=== PATIENT | female | born 1985 | race Caucasian/White ===

== ENCOUNTER 2016-07-13 18:20 | Emergency (ER) | payer OTHER ==
[~2016-07-13] VITALS: Ht 162.5 cm; Wt 77.1 kg
[~2016-07-13 18:20] MED LIST: ALBUTEROL0.09 MG/A2 IH; ALBUTEROL0.09 MG/A2 INH; AMOXIL500 MG PO; ANAPROX DS550 MG PO; BACTRIM DS 8001 TAB PO; BENADRYL25 MG PO; CIPROFLOXACIN500 MG PO; CORTISPORIN SUS10 ML OT; Claritin-D 10 M1 T24 PO; DEPAKOTE500 MG PO; DIFLUCAN150 MG PO; DOXYCYCLINE MO100 MG PO; Effexor25 MG PO; FLAGYL500 MG PO; FLEXERIL5 MG PO; FLONASE ALLERG9.9 ML NAS; FLONASE0.05 MG/AC NS; KENALOG0.1% TP; MACROBID100 M1 PO; MOTRIN800 MG PO; NAPROSYN500 MG PO; NEURONTIN300 MG PO; PREDNICOT10 MG PO; PREDNISONE10 MG PO; ROBITUSSIN AC 110 ML PO; SEPTRA DS 800 M1 TAB PO; SEROQUEL25 MG PO; SUBOXONE 2 MG-01 TA2 SL; TESSALON PERLE200 MG PO; TRAMADOL HCL50 MG PO; VIBRA-TAB100 MG PO; VIBRAMYCIN100 MG PO; VISTARIL25 MG PO; ZITHROMAX250 MG PO; [UNRECOGNIZED DRUG - REMARK]
[2016-07-13 18:25] VITALS: BP 150/90
[2016-07-13] MEDS ORDERED: NAPROSYN500 MG PO (18:34)
== END 2016-07-13 19:34 | disposition home or self-care (01) ==
LOC: ED 18:20
DX: S62.346A Nondisplaced fracture of base of fifth metacarpal bone, right hand, initial encounter for closed fracture (principal); R03.0 Elevated blood-pressure reading, without diagnosis of hypertension; F17.200 Nicotine dependence, unspecified, uncomplicated; Z79.899 Other long term (current) drug therapy; W51.XXXA Accidental striking against or bumped into by another person, initial encounter; Y93.89 Activity, other specified; Y92.89 Other specified places as the place of occurrence of the external cause; Y99.9 Unspecified external cause status

== ENCOUNTER 2016-07-26 13:59 | Emergency (ER) | payer OTHER ==
[~2016-07-26] VITALS: Ht 162.5 cm; Wt 74.8 kg
[2016-07-26] MEDS ORDERED: LITHIUM CARBON300 MG PO (14:06)
[2016-07-26 14:07] VITALS: BP 139/86
[2016-07-26] MEDS ORDERED: GABAPENTIN600 MG PO (14:07)
[2016-07-26 14:37] LABS: BILIRUBIN NEGATIVE (NEGATIVE); BLOOD 1+ (NEGATIVE); CLARITY SL CLOUDY (CLEAR); COLOR YELLOW (YELLOW); GLUCOSE NEGATIVE (NEGATIVE); KETONE NEGATIVE (NEGATIVE); LEUKO ESTERASE 2+ (NEGATIVE); NITRITE NEGATIVE (NEGATIVE); PH 5.5 (5.0-9.0); PROTEIN NEGATIVE (NEGATIVE)
[2016-07-26 14:54] LABS: BACTERIA 1+; EPITHELIAL CELLS 25-30; URINE REFLEX COMMENT YES (NO); WBC TNTC wbc/hpf (0-5); YEAST TRACE
[2016-07-26] MEDS ORDERED: MONISTAT 745 GM V (15:59)
[2016-07-26] MEDS ORDERED: FLAGYL500 MG PO (15:59)
[2016-07-26] MEDS ORDERED: DIFLUCAN150 MG PO (15:59)
[2016-07-26] MEDS ORDERED: CIPRO500 MG PO (15:59)
== END 2016-07-26 16:56 | disposition home or self-care (01) ==
LOC: ED 13:59
PROVIDERS: Nurse Practitioner Family
DX: N30.01 Acute cystitis with hematuria (principal); N76.0 Acute vaginitis; B37.3 Candidiasis of vulva and vagina; F17.200 Nicotine dependence, unspecified, uncomplicated

== ENCOUNTER → 2016-08-07 | Outpatient (CLI) | payer OTHER ==
[~2016-08-07] MED LIST changes: +CIPRO500 MG PO; +GABAPENTIN600 MG PO; +LITHIUM CARBON300 MG PO; +MONISTAT 745 GM V
== END | disposition home or self-care (01) ==
LOC: ORTHO 03:10
DX: S62.316D Displaced fracture of base of fifth metacarpal bone, right hand, subsequent encounter for fracture with routine healing (principal); X58.XXXD Exposure to other specified factors, subsequent encounter

== ENCOUNTER → 2016-09-04 | Outpatient (CLI) | payer OTHER | END | disposition home or self-care (01) | LOC: ORTHO 00:30 | DX: S62.316D Displaced fracture of base of fifth metacarpal bone, right hand, subsequent encounter for fracture with routine healing (principal); X58.XXXD Exposure to other specified factors, subsequent encounter ==

== ENCOUNTER 2018-03-31 08:34 | Emergency (ER) | payer OTHER ==
[~2018-03-31] VITALS: Ht 162.5 cm; Wt 72.6 kg
[~2018-03-31 08:34] MED LIST changes: +KEFLEX500 M1 PO; +ROBITUSSIN DM 105 ML PO
[2018-03-31 08:36] VITALS: BP 98/45
[2018-03-31] MEDS ORDERED: SUBOXONE 8 MG-1 EACH SL (08:38)
[2018-03-31] MEDS ORDERED: PREDNISONE20 M1 PO (09:57)
[2018-03-31] MEDS ORDERED: FLONASE ALLERG9.9 ML NAS (09:57)
[2018-03-31] MEDS ORDERED: ROBITUSSIN DM 101 OZ PO (09:57)
[2018-03-31 10:23] LABS: BILIRUBIN NEGATIVE (NEGATIVE); BLOOD NEGATIVE (NEGATIVE); CLARITY SL CLOUDY (CLEAR); COLOR YELLOW (YELLOW); GLUCOSE NEGATIVE (NEGATIVE); KETONE NEGATIVE (NEGATIVE); LEUKO ESTERASE NEGATIVE (NEGATIVE); NITRITE NEGATIVE (NEGATIVE); PH 5.5 (5.0-9.0); SPECIFIC GRAVITY >= 1.030 (1.005-1.030); UROBILINOGEN 0.2 E.U./dl (0.2-1.0)
[2018-03-31 10:31] LABS: BACTERIA 1+; CALCIUM OXALATE CRYSTALS 1+; EPITHELIAL CELLS 16-20
[2018-03-31] MEDS ORDERED: CLEOCIN HCL300 MG PO (10:39)
== END 2018-03-31 11:14 | disposition home or self-care (01) ==
LOC: ED 08:34
PROVIDERS: Emergency Medicine
DX: N76.0 Acute vaginitis (principal); B96.89 Other specified bacterial agents as the cause of diseases classified elsewhere; Z11.3 Encounter for screening for infections with a predominantly sexual mode of transmission; Z79.899 Other long term (current) drug therapy

== ENCOUNTER 2018-05-11 16:28 | Emergency (ER) | payer OTHER ==
[~2018-05-11] VITALS: Ht 162.5 cm; Wt 72.6 kg
[~2018-05-11 16:28] MED LIST changes: +CLEOCIN HCL300 MG PO; +PREDNISONE20 M1 PO; +ROBITUSSIN DM 101 OZ PO; +SUBOXONE 8 MG-1 EACH SL
[2018-05-11 16:35] VITALS: BP 128/94
[2018-05-11 17:47] LABS: BILIRUBIN NEGATIVE (NEGATIVE); BLOOD 1+ (NEGATIVE); CLARITY CLEAR (CLEAR); COLOR YELLOW (YELLOW); GLUCOSE NEGATIVE (NEGATIVE); KETONE 1+ (NEGATIVE); LEUKO ESTERASE NEGATIVE (NEGATIVE); NITRITE NEGATIVE (NEGATIVE); UROBILINOGEN 0.2 E.U./dl (0.2-1.0)
[2018-05-11 17:53] LABS: BASO % 0.4 % (0.0-1.0); EOS % 0.1 % (1.0-4.0); HEMATOCRIT 41.5 % (37.0-47.0); HEMOGLOBIN 14.8 g/dl (12.0-16.0); LYMPH # 1.8 10*3/uL (1.3-4.4); LYMPH % 24.8 % (27.0-41.0); MEAN CELL VOLUME 85.4 fl (81.0-99.0); MEAN CORPUSCULAR HGB 30.5 pg (27.0-31.0); MEAN CORPUSCULAR HGB CONC 35.7 g/dl (33.0-37.0); MEAN PLATELET VOLUME 12.2 fl (9.6-12.3); MONO # 0.6 10*3/uL (0.1-1.0); MONO % 8.4 % (3.0-9.0); NEUT # 4.8 10*3/uL (2.3-7.9); NEUT % 66.2 % (47.0-73.0); PLATELET COUNT AUTOMATED 174 10*3/uL (130-400); RED BLOOD COUNT 4.86 10*6/uL (4.10-5.10); WHITE BLOOD COUNT 7.3 10*3/uL (4.8-10.8)
[2018-05-11 17:55] LABS: ALBUMIN 3.9 gm/dl (3.1-4.5); ALKALINE PHOSPHATASE 84 U/L (45-117); BUN 8 mg/dl (7-24); CHLORIDE 106 mmol/L (98-107); CREATININE 0.75 mg/dL (0.55-1.02); POTASSIUM 3.9 mmol/L (3.5-5.1); SGOT/AST 72 IU/L (3-35); SGPT/ALT 79 U/L (12-78); SODIUM 139 mmol/L (136-145); TOTAL PROTEIN 8.5 gm/dL (6.4-8.2)
[2018-05-11 17:56] LABS: B-hCG (QUALITATIVE) NEGATIVE (NEGATIVE)
[2018-05-11 17:57] LABS: BACTERIA 1+
[2018-05-11 18:01] LABS: ACT PARTIAL THROMBO TIME 25.8 SECONDS (20.8-31.5)
== END 2018-05-11 20:20 | disposition home or self-care (01) ==
LOC: ED 16:28
PROVIDERS: Emergency Medicine
DX: S39.012A Strain of muscle, fascia and tendon of lower back, initial encounter (principal); S16.1XXA Strain of muscle, fascia and tendon at neck level, initial encounter; S49.91XA Unspecified injury of right shoulder and upper arm, initial encounter; E04.1 Nontoxic single thyroid nodule; R79.1 Abnormal coagulation profile; F17.200 Nicotine dependence, unspecified, uncomplicated; M25.512 Pain in left shoulder; V43.62XA Car passenger injured in collision with other type car in traffic accident, initial encounter; Y93.89 Activity, other specified; Y92.413 State road as the place of occurrence of the external cause; Y99.8 Other external cause status

== ENCOUNTER 2018-10-09 16:27 | Emergency (ER) | payer OTHER ==
[~2018-10-09] VITALS: Ht 162.5 cm; Wt 68.0 kg
[2018-10-09 16:28] VITALS: BP 122/75
[2018-10-09] MEDS ORDERED: METROGEL-VAGINA70 GM V (17:36)
[2018-10-09 18:01] LABS: BILIRUBIN NEGATIVE (NEGATIVE); BLOOD NEGATIVE (NEGATIVE); CLARITY CLEAR (CLEAR); COLOR YELLOW (YELLOW); GLUCOSE NEGATIVE (NEGATIVE); KETONE NEGATIVE (NEGATIVE); LEUKO ESTERASE NEGATIVE (NEGATIVE); NITRITE NEGATIVE (NEGATIVE); UROBILINOGEN 0.2 E.U./dl (0.2-1.0)
[2018-10-09 18:09] LABS: EPITHELIAL CELLS 3; WBC 0-2 wbc/hpf (0-5)
[2018-10-14 09:50] LABS: GONOCOCCUS BY NAA Negative (Negative)
== END 2018-10-09 18:16 | disposition home or self-care (01) ==
LOC: ED 16:27
PROVIDERS: Nurse Practitioner Family
DX: N76.0 Acute vaginitis (principal); B96.89 Other specified bacterial agents as the cause of diseases classified elsewhere; Z72.51 High risk heterosexual behavior; Z20.2 Contact with and (suspected) exposure to infections with a predominantly sexual mode of transmission; Z79.2 Long term (current) use of antibiotics; Z79.899 Other long term (current) drug therapy

== ENCOUNTER 2018-12-15 13:40 | Emergency (ER) | payer OTHER ==
[~2018-12-15] VITALS: Ht 162.5 cm; Wt 72.6 kg
[~2018-12-15 13:40] MED LIST changes: +METROGEL-VAGINA70 GM V
[2018-12-15 13:41] VITALS: BP 120/85
[2018-12-15] MEDS ORDERED: METROGEL-VAGINA70 GM V (14:22)
[2018-12-15] MEDS ORDERED: CLINDAMYCIN HC300 MG PO (14:33)
== END 2018-12-15 14:26 | disposition home or self-care (01) ==
LOC: ED 13:40
DX: N76.0 Acute vaginitis (principal)

== ENCOUNTER → 2019-02-23 | Outpatient (CLI) | payer OTHER ==
[~2019-02-23] MED LIST changes: +CLINDAMYCIN HC300 MG PO
[2019-02-23 11:16] LABS: ALBUMIN 4.1 gm/dl (3.1-4.5)
[2019-02-23 11:20] LABS: BILIRUBIN, DIRECT 0.2 mg/dL (0.0-0.2); TOTAL PROTEIN 8.7 gm/dL (6.4-8.2)
[2019-02-26 00:10] LABS: HCV LOG10 5.799 (.); HEPATITIS C QNT 630000 IU/mL (.)
== END | disposition home or self-care (01) ==
LOC: LAB 09:46 → US 09:46
PROVIDERS: Internal Medicine Gastroenterology
DX: B18.2 Chronic viral hepatitis C (principal); R94.5 Abnormal results of liver function studies

== ENCOUNTER 2019-03-28 22:00 | Inpatient (IN) | payer OTHER ==
[~2019-03-28] VITALS: Ht 162.6 cm; Wt 69.9 kg
[2019-03-28 22:09] VITALS: BP 143/83
[2019-03-28 23:07] LABS: BASO % 0.4 % (0.0-1.0); EOS # 0.1 10*3/uL (0.0-0.4); EOS % 0.5 % (1.0-4.0); HEMATOCRIT 40.8 % (37.0-47.0); HEMOGLOBIN 13.7 g/dl (12.0-16.0); LYMPH # 2.4 10*3/uL (1.3-4.4); MEAN CELL VOLUME 90.7 fl (81.0-99.0); MEAN CORPUSCULAR HGB 30.4 pg (27.0-31.0); MEAN CORPUSCULAR HGB CONC 33.6 g/dl (33.0-37.0); MEAN PLATELET VOLUME 11.7 fl (9.6-12.3); MONO # 1.1 10*3/uL (0.1-1.0); MONO % 9.5 % (3.0-9.0); NEUT # 7.4 10*3/uL (2.3-7.9); NEUT % 67.2 % (47.0-73.0); PLATELET COUNT AUTOMATED 181 10*3/uL (130-400); RED CELL DISTRI WIDTH 11.9 % (0-14.5)
[2019-03-28 23:26] LABS: ALBUMIN 3.6 gm/dl (3.1-4.5); ALKALINE PHOSPHATASE 80 U/L (45-117); BUN 9 mg/dl (7-24); CHLORIDE 106 mmol/L (98-107); CREATININE 0.81 mg/dL (0.55-1.02); POTASSIUM 3.7 mmol/L (3.5-5.1); SGOT/AST 78 IU/L (3-35); SGPT/ALT 92 U/L (12-78); SODIUM 136 mmol/L (136-145); TOTAL PROTEIN 7.9 gm/dL (6.4-8.2)
[2019-03-28 23:27] LABS: BETA-HCG, QUANT < 1.0 mIU/mL (1-3); TROPONIN I < 0.015 ng/ml (<0.045)
[2019-03-29 00:41] LABS: BILIRUBIN NEGATIVE (NEGATIVE); BLOOD TRACE-INTACT (NEGATIVE); CLARITY CLEAR (CLEAR); COLOR YELLOW (YELLOW); GLUCOSE NEGATIVE (NEGATIVE); KETONE NEGATIVE (NEGATIVE); LEUKO ESTERASE NEGATIVE (NEGATIVE); NITRITE NEGATIVE (NEGATIVE); UROBILINOGEN 0.2 E.U./dl (0.2-1.0)
[2019-03-29 00:50] LABS: RBC 0-2 rbc/hpf (0-2); WBC 0-2 wbc/hpf (0-5)
[2019-03-29 07:35] VITALS: BP 107/62
[2019-03-29 08:00] VITALS: BP 98/69
[2019-03-29] MEDS ORDERED: SEROQUEL100 MG PO (08:27)
[2019-03-29] MEDS ORDERED: RISPERDAL2 M1 PO (08:27)
[2019-03-29] MEDS ORDERED: NEURONTIN100 MG PO (08:27)
[2019-03-29] MEDS ORDERED: PROAIR HFA8.5 GM INH (08:28)
[2019-03-29 12:00] VITALS: BP 102/61
[2019-03-29 16:00] VITALS: BP 97/70
[2019-03-29 20:00] VITALS: BP 108/59
[2019-03-30] VITALS (7 sets, daily range): BP systolic 91–161; BP diastolic 51–142
[2019-03-30 06:57] LABS: BASO # 0.1 10*3/uL (0.0-0.1); BASO % 0.6 % (0.0-1.0); EOS # 0.3 10*3/uL (0.0-0.4); EOS % 3.5 % (1.0-4.0); HEMATOCRIT 46.4 % (37.0-47.0); HEMOGLOBIN 15.3 g/dl (12.0-16.0); LYMPH # 2.8 10*3/uL (1.3-4.4); LYMPH % 34.1 % (27.0-41.0); MEAN CELL VOLUME 90.8 fl (81.0-99.0); MEAN CORPUSCULAR HGB 29.9 pg (27.0-31.0); MONO # 0.9 10*3/uL (0.1-1.0); MONO % 11.2 % (3.0-9.0); NEUT # 4.1 10*3/uL (2.3-7.9); NEUT % 50.4 % (47.0-73.0); PLATELET COUNT AUTOMATED 204 10*3/uL (130-400); RED BLOOD COUNT 5.11 10*6/uL (4.10-5.10); RED CELL DISTRI WIDTH 12.1 % (0-14.5); WHITE BLOOD COUNT 8.1 10*3/uL (4.8-10.8)
[2019-03-30 07:08] LABS: BUN 8 mg/dl (7-24); CHLORIDE 108 mmol/L (98-107); CREATININE 0.74 mg/dL (0.55-1.02); POTASSIUM 4.1 mmol/L (3.5-5.1); SODIUM 138 mmol/L (136-145)
[2019-03-30] MEDS ORDERED: IBU800 MG PO (16:24)
[2019-03-30] MEDS ORDERED: DOXYCYCLINE MO100 M1 PO (16:24)
== END 2019-03-30 17:15 | disposition home or self-care (01) | DRG 364 ==
LOC: ED 22:00 → 5E 03-29 02:07 → EDHOLD 03-29 02:07 → 5E 03-29 07:38
PROVIDERS: Internal Medicine; Nurse Practitioner Family; ADMIT Internal Medicine
PROC: 0J990ZZ Drainage of Buttock Subcutaneous Tissue and Fascia, Open Approach (ICD-10-PCS; principal; 2019-03-30)
DX: L03.317 Cellulitis of buttock (principal); L02.31 Cutaneous abscess of buttock; F32.9 Major depressive disorder, single episode, unspecified; F43.10 Post-traumatic stress disorder, unspecified; B19.20 Unspecified viral hepatitis C without hepatic coma; Z87.891 Personal history of nicotine dependence; Z81.8 Family history of other mental and behavioral disorders

== ENCOUNTER → 2019-08-17 | Outpatient (CLI) | payer OTHER ==
[~2019-08-17] MED LIST changes: +DOXYCYCLINE MO100 M1 PO; +IBU800 MG PO; +NEURONTIN100 MG PO; +PROAIR HFA8.5 GM INH; +RISPERDAL2 M1 PO; +SEROQUEL100 MG PO
[2019-08-17 11:49] LABS: ALBUMIN 3.9 gm/dl (3.1-4.5)
[2019-08-17 11:57] LABS: FREE T4 1.12 ng/dl (0.76-1.46); THYROID STIM HORMONE (HS) 0.464 uIU/ml (0.358-4.75)
[2019-08-18 10:06] LABS: THYROID PEROXIDASE (TPO) AB <9 IU/mL (0-34)
[2019-08-18 14:08] LABS: THYROGLOBULIN ANTIBODY <1.0 IU/mL (0.0-0.9)
== END | disposition home or self-care (01) ==
LOC: LAB 09:11
PROVIDERS: Internal Medicine
DX: E04.1 Nontoxic single thyroid nodule (principal); E55.9 Vitamin D deficiency, unspecified

== ENCOUNTER → 2019-08-25 | Outpatient (CLI) | payer OTHER | END | disposition home or self-care (01) | LOC: US 15:00 | DX: E04.1 Nontoxic single thyroid nodule (principal) ==

== ENCOUNTER → 2019-12-09 | Outpatient (CLI) | payer OTHER ==
[2019-12-09 16:21] LABS: ALBUMIN 3.5 gm/dl (3.1-4.5); ALKALINE PHOSPHATASE 74 U/L (45-117); BUN 5 mg/dl (7-24); CHLORIDE 107 mmol/L (98-107); CREATININE 0.68 mg/dL (0.55-1.02); POTASSIUM 3.8 mmol/L (3.5-5.1); SGOT/AST 64 IU/L (3-35); SGPT/ALT 62 U/L (12-78); SODIUM 134 mmol/L (136-145); TOTAL PROTEIN 8.1 gm/dL (6.4-8.2)
[2019-12-09 17:08] LABS: HEMATOCRIT 48.5 % (37.0-47.0); MEAN CORPUSCULAR HGB 29.2 pg (27.0-31.0); MEAN CORPUSCULAR HGB CONC 33.2 g/dl (33.0-37.0); MEAN PLATELET VOLUME 12.8 fl (9.6-12.3); PLATELET COUNT AUTOMATED 170 10*3/uL (130-400); RED BLOOD COUNT 5.51 10*6/uL (4.10-5.10); RED CELL DISTRI WIDTH 12.2 % (0-14.5); WHITE BLOOD COUNT 8.6 10*3/uL (4.8-10.8)
[2019-12-09 17:45] LABS: ATYPICAL LYMPHS 1 % (0-0); PLATELET SUFFICIENCY NORMAL (NORMAL); TOTAL CELLS COUNTED 100 #CELLS
== END | disposition home or self-care (01) ==
LOC: LAB 15:40
PROVIDERS: ATTEND Internal Medicine
DX: R19.09 Other intra-abdominal and pelvic swelling, mass and lump (principal); M79.671 Pain in right foot

== ENCOUNTER → 2020-01-03 | Outpatient (CLI) | payer OTHER ==
[2020-01-03 12:52] LABS: BASO % 0.5 % (0.0-1.0); EOS # 0.1 10*3/uL (0.0-0.4); HEMATOCRIT 47.3 % (37.0-47.0); LYMPH # 2.3 10*3/uL (1.3-4.4); LYMPH % 31.2 % (27.0-41.0); MEAN CELL VOLUME 89.9 fl (81.0-99.0); MEAN CORPUSCULAR HGB 29.7 pg (27.0-31.0); MEAN PLATELET VOLUME 12.9 fl (9.6-12.3); MONO # 0.5 10*3/uL (0.1-1.0); MONO % 6.9 % (3.0-9.0); NEUT # 4.4 10*3/uL (2.3-7.9); NEUT % 60.1 % (47.0-73.0); PLATELET COUNT AUTOMATED 215 10*3/uL (130-400); RED BLOOD COUNT 5.26 10*6/uL (4.10-5.10); RED CELL DISTRI WIDTH 12.7 % (0-14.5); WHITE BLOOD COUNT 7.4 10*3/uL (4.8-10.8)
[2020-01-04 08:08] LABS: HEP B CORE AB, IGM Negative (Negative); HEPATITIS B SURFACE AG Negative (Negative)
[2020-01-04 14:08] LABS: ANTI-RNP ANTIBODIES <0.2 AI (0.0-0.9); ANTISCLERODERMA-70 AB <0.2 AI (0.0-0.9); SJOGREN ANTI-SS-A <0.2 AI (0.0-0.9); SJOREN AB, ANTI-SS-B 0.7 AI (0.0-0.9)
[2020-01-05 11:58] LABS: HEPATITIS C VIRUS ANTIBODY >11.0 s/co (0.0-0.9)
== END | disposition home or self-care (01) ==
LOC: US 10:30 → LAB 10:45
PROVIDERS: ATTEND Internal Medicine
DX: K82.8 Other specified diseases of gallbladder (principal); R76.8 Other specified abnormal immunological findings in serum; R74.01 Elevation of levels of liver transaminase levels

== ENCOUNTER 2020-01-19 11:59 | Emergency (ER) | payer OTHER ==
[~2020-01-19] VITALS: Wt 68.0 kg
[~2020-01-19 11:59] MED LIST changes: -ANTIBIOTIC28.4 GM T; -DOXYCYCLINE100 M3 PO; -IBUPROFEN600 MG PO
[2020-01-19 12:09] VITALS: BP 127/83
[2020-01-20] MEDS ORDERED: IBU800 MG PO (12:21)
[2020-01-20] MEDS ORDERED: DOXYCYCLINE100 M3 PO (12:21)
[2020-01-20] MEDS ORDERED: ANTIBIOTIC28.4 GM T (12:21)
== END 2020-01-19 13:28 | disposition left against medical advice (07) ==
LOC: ED 11:59
DX: S69.91XA Unspecified injury of right wrist, hand and finger(s), initial encounter (principal); F41.9 Anxiety disorder, unspecified; J45.909 Unspecified asthma, uncomplicated; Z79.899 Other long term (current) drug therapy; X58.XXXA Exposure to other specified factors, initial encounter; Y93.89 Activity, other specified; Y92.89 Other specified places as the place of occurrence of the external cause; Y99.8 Other external cause status

== ENCOUNTER → 2020-01-19 | Outpatient (CLI) | payer OTHER ==
[~2020-01-19] MED LIST changes: +ANTIBIOTIC28.4 GM T; +DOXYCYCLINE100 M3 PO; +IBUPROFEN600 MG PO
[2020-01-19 13:30] LABS: BILIRUBIN Negative (Negative); BLOOD Negative (Negative); CLARITY Cloudy (Clear); COLOR Yellow (Yellow); GLUCOSE Negative (Negative); KETONE Trace (Negative); LEUKO ESTERASE 1+ (Negative); NITRITE Positive (Negative); PH 5.5 (4.5-8.0)
[2020-01-19 14:08] LABS: BACTERIA 4+; EPITHELIAL CELLS 16-20; WBC 16-20 wbc/hpf (0-5)
[2020-01-20 07:06] LABS: HEPATITIS B SURFACE AB Non Reactive (.)
[2020-01-20 08:08] LABS: AFP TUMOR MARKER 1.8 ng/mL (0.0-8.3); RHEUMATOID ARTHRITIS FACTOR 21.8 IU/mL (0.0-13.9)
[2020-01-20 20:07] LABS: HCV LOG10 6.083 (.); HEPATITIS C QNT 1210000 IU/mL (.)
== END | disposition home or self-care (01) ==
LOC: NM 07:00 → LAB 08:49 → NM 09:00
PROVIDERS: ATTEND Internal Medicine
DX: R93.5 Abnormal findings on diagnostic imaging of other abdominal regions, including retroperitoneum (principal); R76.8 Other specified abnormal immunological findings in serum; Z11.59 Encounter for screening for other viral diseases; Z72.89 Other problems related to lifestyle

== ENCOUNTER 2020-01-20 10:35 | Emergency (ER) | payer OTHER ==
[~2020-01-20] VITALS: Wt 68.0 kg
[2020-01-20 10:50] VITALS: BP 124/77
[2020-01-20] MEDS ORDERED: DOXYCYCLINE100 M3 PO (12:21)
[2020-01-20] MEDS ORDERED: ANTIBIOTIC28.4 GM T (12:21)
[2020-01-20] MEDS ORDERED: IBU800 MG PO (12:21)
== END 2020-01-20 13:20 | disposition home or self-care (01) ==
LOC: ED 10:35
DX: S69.91XA Unspecified injury of right wrist, hand and finger(s), initial encounter (principal); S50.811A Abrasion of right forearm, initial encounter; L08.89 Other specified local infections of the skin and subcutaneous tissue; X58.XXXA Exposure to other specified factors, initial encounter; Y93.89 Activity, other specified; Y92.89 Other specified places as the place of occurrence of the external cause; Y99.8 Other external cause status

== ENCOUNTER → 2020-02-01 | Outpatient (CLI) | payer OTHER ==
[~2020-02-01] MED LIST changes: +ANTIBIOTIC28.4 GM T; +DOXYCYCLINE100 M3 PO; +IBUPROFEN600 MG PO
== END | disposition home or self-care (01) ==
LOC: LAB 12:39
PROVIDERS: ATTEND Internal Medicine
DX: N30.00 Acute cystitis without hematuria (principal)

== ENCOUNTER 2020-02-20 12:11 | Emergency (ER) | payer OTHER ==
[~2020-02-20] VITALS: Ht 162.5 cm; Wt 68.0 kg
[~2020-02-20 12:11] MED LIST changes: -IBUPROFEN600 MG PO
[2020-02-20 12:51] LABS: BASO % 0.6 % (0.0-1.0); EOS # 0.1 10*3/uL (0.0-0.4); EOS % 1.7 % (1.0-4.0); HEMATOCRIT 42.4 % (37.0-47.0); LYMPH # 2.3 10*3/uL (1.3-4.4); LYMPH % 31.6 % (27.0-41.0); MEAN CELL VOLUME 91.4 fl (81.0-99.0); MEAN CORPUSCULAR HGB 29.7 pg (27.0-31.0); MEAN CORPUSCULAR HGB CONC 32.5 g/dl (33.0-37.0); MEAN PLATELET VOLUME 11.4 fl (9.6-12.3); MONO # 0.5 10*3/uL (0.1-1.0); MONO % 7.5 % (3.0-9.0); NEUT # 4.2 10*3/uL (2.3-7.9); NEUT % 58.3 % (47.0-73.0); PLATELET COUNT AUTOMATED 205 10*3/uL (130-400); RED BLOOD COUNT 4.64 10*6/uL (4.10-5.10); RED CELL DISTRI WIDTH 12.6 % (0-14.5); WHITE BLOOD COUNT 7.2 10*3/uL (4.8-10.8)
[2020-02-20 13:01] LABS: BUN 5 mg/dl (7-24); CHLORIDE 108 mmol/L (98-107); CREATININE 0.57 mg/dL (0.55-1.02); POTASSIUM 3.9 mmol/L (3.5-5.1); SODIUM 138 mmol/L (136-145)
[2020-02-20 13:04] LABS: ETHYL ALCOHOL < 3.0 mg/dl (<3)
[2020-02-20 13:18] LABS: BILIRUBIN Negative (Negative); BLOOD Negative (Negative); CLARITY Clear (Clear); COLOR Yellow (Yellow); GLUCOSE Negative (Negative); KETONE Negative (Negative); LEUKO ESTERASE Negative (Negative); NITRITE Negative (Negative); SPECIFIC GRAVITY <= 1.005 (1.001-1.030); UROBILINOGEN 0.2 E.U./dl (0.0-1.0)
[2020-02-20 13:24] LABS: RBC 0-2 rbc/hpf (0-2); WBC 0-2 wbc/hpf (0-5)
[2020-02-20 13:26] LABS: URINE AMPHETAMINES < 1000 (1000ng/ml); URINE BARBITURATES < 200 (200ng/ml); URINE BENZODIAZEPINES < 200 (200ng/ml); URINE CANNABINOIDS (THC) > 50 (50ng/ml); URINE COCAINE < 300 (300ng/ml); URINE METHADONE < 300 (300ng/ml); URINE OPIATES < 300 (300ng/ml)
[2020-02-20 13:27] LABS: URINE PHENCYCLIDINE < 25 (25ng/ml)
== END 2020-02-20 14:52 | disposition home or self-care (01) ==
LOC: ED 12:11
PROVIDERS: Student in an Organized Health Care Education/Training Program
DX: F43.23 Adjustment disorder with mixed anxiety and depressed mood (principal); J45.909 Unspecified asthma, uncomplicated; Z79.2 Long term (current) use of antibiotics; Z79.899 Other long term (current) drug therapy; Z87.891 Personal history of nicotine dependence

== ENCOUNTER 2020-02-25 14:17 | Emergency (ER) | payer OTHER ==
[2020-02-25 14:20] VITALS: BP 100/78
[2020-02-25 14:42] LABS: BASO % 0.4 % (0.0-1.0); EOS # 0.1 10*3/uL (0.0-0.4); EOS % 1.5 % (1.0-4.0); HEMATOCRIT 42.9 % (37.0-47.0); LYMPH # 2.2 10*3/uL (1.3-4.4); LYMPH % 30.3 % (27.0-41.0); MEAN CELL VOLUME 90.3 fl (81.0-99.0); MEAN CORPUSCULAR HGB 29.9 pg (27.0-31.0); MEAN CORPUSCULAR HGB CONC 33.1 g/dl (33.0-37.0); MEAN PLATELET VOLUME 11.2 fl (9.6-12.3); MONO # 0.6 10*3/uL (0.1-1.0); NEUT # 4.2 10*3/uL (2.3-7.9); NEUT % 59.5 % (47.0-73.0); PLATELET COUNT AUTOMATED 206 10*3/uL (130-400); RED BLOOD COUNT 4.75 10*6/uL (4.10-5.10); RED CELL DISTRI WIDTH 12.3 % (0-14.5); WHITE BLOOD COUNT 7.1 10*3/uL (4.8-10.8)
[2020-02-25 15:06] LABS: ALBUMIN 3.5 gm/dl (3.1-4.5); ALKALINE PHOSPHATASE 75 U/L (45-117); BUN 5 mg/dl (7-24); CHLORIDE 107 mmol/L (98-107); CREATININE 0.64 mg/dL (0.55-1.02); POTASSIUM 3.7 mmol/L (3.5-5.1); SGOT/AST 67 IU/L (3-35); SGPT/ALT 65 U/L (12-78); SODIUM 137 mmol/L (136-145); TOTAL PROTEIN 7.6 gm/dL (6.4-8.2)
[2020-02-25 15:20] LABS: ACETAMINOPHEN (TYLENOL) < 5.0 ug/ml (10-30); BETA-HCG, QUANT < 1.0 mIU/mL (1-3); ETHYL ALCOHOL < 3.0 mg/dl (<3)
[2020-02-25 15:21] LABS: BILIRUBIN Negative (Negative); BLOOD Negative (Negative); CLARITY Clear (Clear); COLOR Yellow (Yellow); GLUCOSE Negative (Negative); KETONE Negative (Negative); LEUKO ESTERASE Negative (Negative); NITRITE Negative (Negative); PH 6.5 (4.5-8.0); SPECIFIC GRAVITY <= 1.005 (1.001-1.030); UROBILINOGEN 0.2 E.U./dl (0.0-1.0)
[2020-02-25 15:29] LABS: URINE AMPHETAMINES < 1000 (1000ng/ml); URINE BARBITURATES < 200 (200ng/ml); URINE BENZODIAZEPINES < 200 (200ng/ml); URINE CANNABINOIDS (THC) > 50 (50ng/ml); URINE COCAINE < 300 (300ng/ml); URINE METHADONE < 300 (300ng/ml); URINE OPIATES < 300 (300ng/ml)
[2020-02-25 15:34] LABS: URINE PHENCYCLIDINE < 25 (25ng/ml)
[2020-02-25 15:38] LABS: BACTERIA TRACE; WBC 0-2 wbc/hpf (0-5)
== END 2020-02-25 16:48 | disposition home or self-care (01) ==
LOC: ED 14:17
PROVIDERS: Emergency Medicine
DX: F43.23 Adjustment disorder with mixed anxiety and depressed mood (principal); Z79.899 Other long term (current) drug therapy

== ENCOUNTER 2020-03-15 14:26 | Emergency (ER) | payer OTHER ==
[~2020-03-15] VITALS: Ht 162.5 cm; Wt 63.5 kg
[2020-03-15 14:46] VITALS: BP 123/71
[2020-03-15] MEDS ORDERED: IBUPROFEN600 MG PO (16:50)
== END 2020-03-15 16:52 | disposition home or self-care (01) ==
LOC: ED 14:26
DX: S90.31XA Contusion of right foot, initial encounter (principal); Z79.899 Other long term (current) drug therapy; Z87.891 Personal history of nicotine dependence; X58.XXXA Exposure to other specified factors, initial encounter; Y93.89 Activity, other specified; Y92.89 Other specified places as the place of occurrence of the external cause; Y99.8 Other external cause status

== ENCOUNTER → 2020-05-08 | Outpatient (CLI) | payer OTHER ==
[~2020-05-08] MED LIST changes: +IBUPROFEN600 MG PO
== END | disposition home or self-care (01) ==
LOC: RAD 14:12
PROVIDERS: ATTEND Internal Medicine
DX: M25.551 Pain in right hip (principal)

== ENCOUNTER → 2020-05-17 | Outpatient (CLI) | payer OTHER | END | disposition home or self-care (01) | LOC: US 05-01 13:00 | PROVIDERS: ATTEND Internal Medicine | DX: E04.1 Nontoxic single thyroid nodule (principal) ==

== ENCOUNTER → 2020-09-01 | Outpatient (CLI) | payer OTHER ==
[2020-09-01 15:18] LABS: CHOLESTEROL 153 mg/dL (<200); LDL CHOLESTEROL 67 mg/dL (9-159); TRIGLYCERIDES 117 mg/dl (<150)
== END | disposition home or self-care (01) ==
LOC: US 08-22 11:00
PROVIDERS: ATTEND Internal Medicine
DX: Z51.81 Encounter for therapeutic drug level monitoring (principal); B18.2 Chronic viral hepatitis C; Z79.899 Other long term (current) drug therapy

== ENCOUNTER → 2020-11-09 | Outpatient (CLI) | payer OTHER ==
[2020-11-09 13:22] LABS: BASO % 0.5 % (0.0-1.0); EOS # 0.2 10*3/uL (0.0-0.4); EOS % 1.7 % (1.0-4.0); HEMATOCRIT 43.4 % (37.0-47.0); LYMPH # 2.2 10*3/uL (1.3-4.4); LYMPH % 24.4 % (27.0-41.0); MEAN CELL VOLUME 86.3 fl (81.0-99.0); MEAN CORPUSCULAR HGB 29.8 pg (27.0-31.0); MEAN CORPUSCULAR HGB CONC 34.6 g/dl (33.0-37.0); MEAN PLATELET VOLUME 11.1 fl (9.6-12.3); MONO # 0.9 10*3/uL (0.1-1.0); MONO % 9.6 % (3.0-9.0); NEUT # 5.6 10*3/uL (2.3-7.9); NEUT % 63.5 % (47.0-73.0); PLATELET COUNT AUTOMATED 268 10*3/uL (130-400); RED BLOOD COUNT 5.03 10*6/uL (4.10-5.10); RED CELL DISTRI WIDTH 11.9 % (0-14.5); WHITE BLOOD COUNT 8.9 10*3/uL (4.8-10.8)
[2020-11-09 13:34] LABS: BUN 6 mg/dl (7-24); CHLORIDE 105 mmol/L (98-107); CREATININE 0.64 mg/dL (0.55-1.02); POTASSIUM 3.4 mmol/L (3.5-5.1); SODIUM 137 mmol/L (136-145)
== END | disposition home or self-care (01) ==
LOC: LAB 13:04
PROVIDERS: ATTEND Internal Medicine
DX: N10 Acute pyelonephritis (principal)

== ENCOUNTER → 2020-11-10 | Outpatient (CLI) | payer OTHER ==
[2020-11-10 15:13] LABS: BASO # 0.1 10*3/uL (0.0-0.1); BASO % 0.6 % (0.0-1.0); EOS # 0.1 10*3/uL (0.0-0.4); EOS % 0.9 % (1.0-4.0); HEMATOCRIT 41.2 % (37.0-47.0); LYMPH # 2.5 10*3/uL (1.3-4.4); LYMPH % 28.5 % (27.0-41.0); MEAN CELL VOLUME 85.7 fl (81.0-99.0); MEAN CORPUSCULAR HGB 29.3 pg (27.0-31.0); MEAN CORPUSCULAR HGB CONC 34.2 g/dl (33.0-37.0); MEAN PLATELET VOLUME 10.8 fl (9.6-12.3); MONO # 1.1 10*3/uL (0.1-1.0); MONO % 12.1 % (3.0-9.0); NEUT # 5.1 10*3/uL (2.3-7.9); NEUT % 57.7 % (47.0-73.0); PLATELET COUNT AUTOMATED 272 10*3/uL (130-400); RED BLOOD COUNT 4.81 10*6/uL (4.10-5.10); RED CELL DISTRI WIDTH 11.9 % (0-14.5); WHITE BLOOD COUNT 8.9 10*3/uL (4.8-10.8)
[2020-11-10 15:49] LABS: ALBUMIN 3.7 gm/dl (3.1-4.5)
[2020-11-10 15:51] LABS: TOTAL PROTEIN 8.5 gm/dL (6.4-8.2)
[2020-11-11 08:08] LABS: HEPATITIS B SURFACE AB Non Reactive (.); HEPATITIS B SURFACE AG Negative (Negative)
[2020-11-11 20:06] LABS: HCV LOG10 5.486 (.); HEPATITIS C QNT 306000 IU/mL (.)
== END | disposition home or self-care (01) ==
LOC: LAB 14:45
PROVIDERS: ATTEND Internal Medicine Gastroenterology
DX: B18.2 Chronic viral hepatitis C (principal)

== ENCOUNTER → 2021-11-12 | Outpatient (CLI) | payer OTHER | END | disposition home or self-care (01) | LOC: CARD 11-05 11:30 | PROVIDERS: ATTEND Internal Medicine | DX: R00.2 Palpitations (principal); Z53.9 Procedure and treatment not carried out, unspecified reason ==

== ENCOUNTER 2022-02-18 14:24 | Emergency (ER) | payer OTHER ==
[~2022-02-18] VITALS: Wt 81.6 kg
[2022-02-18 14:47] VITALS: BP 133/80
[2022-02-18] MEDS ORDERED: TAMIFLU 75MG CA75 MG PO (20:12)
== END 2022-02-18 20:21 | disposition home or self-care (01) ==
LOC: ED 14:24
DX: B34.9 Viral infection, unspecified (principal); Z20.822 Contact with and (suspected) exposure to COVID-19; Z79.899 Other long term (current) drug therapy; Z87.891 Personal history of nicotine dependence

== ENCOUNTER 2022-06-22 13:07 | Emergency (ER) | payer OTHER ==
[~2022-06-22] VITALS: Ht 162.5 cm; Wt 81.6 kg
[~2022-06-22 13:07] MED LIST changes: +TAMIFLU 75MG CA75 MG PO
[2022-06-22 13:30] VITALS: BP 125/87
[2022-06-22 13:50] LABS: BILIRUBIN Negative (Negative); BLOOD 1+ (Negative); CLARITY Clear (Clear); COLOR Yellow (Yellow); GLUCOSE Negative (Negative); KETONE Negative (Negative); LEUKO ESTERASE Negative (Negative); NITRITE Negative (Negative); UROBILINOGEN 0.2 E.U./dl (0.0-1.0)
[2022-06-22 14:01] LABS: EPITHELIAL CELLS 0-2; WBC 0-2 wbc/hpf (0-5)
[2022-06-22 14:21] LABS: BASO # 0.1 10*3/uL (0.0-0.1); BASO % 0.6 % (0.0-1.0); EOS # 0.2 10*3/uL (0.0-0.4); HEMATOCRIT 47.1 % (37.0-47.0); LYMPH # 2.8 10*3/uL (1.3-4.4); LYMPH % 18.8 % (27.0-41.0); MEAN CORPUSCULAR HGB 28.2 pg (27.0-31.0); MEAN CORPUSCULAR HGB CONC 31.6 g/dl (33.0-37.0); MEAN PLATELET VOLUME 10.8 fl (9.6-12.3); NEUT # 10.6 10*3/uL (2.3-7.9); NEUT % 72.2 % (47.0-73.0); PLATELET COUNT AUTOMATED 271 10*3/uL (130-400); RED BLOOD COUNT 5.29 10*6/uL (4.10-5.10); RED CELL DISTRI WIDTH 12.6 % (0-14.5); WHITE BLOOD COUNT 14.6 10*3/uL (4.8-10.8)
[2022-06-22 14:37] LABS: ALKALINE PHOSPHATASE 88 U/L (46-116); CHLORIDE 104 mmol/L (98-107)
[2022-06-22 14:42] LABS: BUN < 5 mg/dl (9-23)
[2022-06-22 14:44] LABS: B-hCG (QUALITATIVE) NEGATIVE (NEGATIVE)
[2022-06-22 14:58] LABS: SGPT/ALT 11 U/L (10-49)
[2022-06-22] MEDS ORDERED: OMNICEF300 MG PO (17:45)
== END 2022-06-22 17:53 | disposition home or self-care (01) ==
LOC: ED 13:07
PROVIDERS: Internal Medicine
DX: N39.0 Urinary tract infection, site not specified (principal); F41.9 Anxiety disorder, unspecified; J45.909 Unspecified asthma, uncomplicated; F19.10 Other psychoactive substance abuse, uncomplicated; Z87.891 Personal history of nicotine dependence

== ENCOUNTER → 2022-09-05 | Outpatient (CLI) | payer OTHER ==
[~2022-09-05] MED LIST changes: +OMNICEF300 MG PO
[2022-09-06 13:07] LABS: CCP ANTIBODIES IGG/IGA 2 units (0-19)
[2022-09-06 14:08] LABS: ANTI-DSDNA ANTIBODIES 1 IU/mL (0-9); SJOGREN ANTI-SS-A <0.2 AI (0.0-0.9); SJOREN AB, ANTI-SS-B 0.5 AI (0.0-0.9)
== END | disposition home or self-care (01) ==
LOC: LAB 13:19
PROVIDERS: ATTEND Internal Medicine
DX: I73.00 Raynaud's syndrome without gangrene (principal)

== ENCOUNTER 2022-12-24 01:47 | Emergency (ER) | payer OTHER ==
[~2022-12-24] VITALS: Ht 162.5 cm; Wt 72.6 kg
[2022-12-24 01:53] VITALS: BP 124/72
[2022-12-24] MEDS ORDERED: CEPHALEXIN500 M1 PO (02:40)
== END 2022-12-24 03:01 | disposition home or self-care (01) ==
LOC: ED 01:47
DX: S61.210A Laceration without foreign body of right index finger without damage to nail, initial encounter (principal); Z79.899 Other long term (current) drug therapy; Z79.2 Long term (current) use of antibiotics; F17.210 Nicotine dependence, cigarettes, uncomplicated; W26.8XXA Contact with other sharp object(s), not elsewhere classified, initial encounter; Y93.89 Activity, other specified; Y92.89 Other specified places as the place of occurrence of the external cause; Y99.8 Other external cause status

== ENCOUNTER 2024-04-05 18:28 | Inpatient (IN) | payer OTHER ==
[~2024-04-05] VITALS: Ht 162.6 cm
[~2024-04-05 18:28] MED LIST changes: +CEPHALEXIN500 M1 PO
[2024-04-05 18:39] VITALS: BP 124/82
[2024-04-05] MEDS ORDERED: SODIUM CHLORIDE 0.9% 1,000 ML IV ONE ×2 (18:45→21:25)
[2024-04-05] MEDS ORDERED: AZITHROMYCIN 250 ML IV ONE (18:45)
[2024-04-05] MEDS ORDERED: Ceftriaxone Sodium 1 GM/10 ML SYR IV ONE (18:45)
[2024-04-05 19:17] LABS: HEMATOCRIT 41.5 % (37.0-47.0); MEAN CELL VOLUME 80.7 fl (81.0-99.0); MEAN CORPUSCULAR HGB 25.9 pg (27.0-31.0); PLATELET COUNT AUTOMATED 459 10*3/uL (130-400); RED BLOOD COUNT 5.14 10*6/uL (4.10-5.10); RED CELL DISTRI WIDTH 13.4 % (0-14.5); WHITE BLOOD COUNT 15.3 10*3/uL (4.8-10.8)
[2024-04-05 19:19] LABS: MANUAL DIFF REFLEX YES
[2024-04-05 19:42] LABS: BUN 7 mg/dl (9-23); CHLORIDE 97 mmol/L (98-107); POTASSIUM 3.4 mmol/L (3.4-5.1)
[2024-04-05 19:43] LABS: PLATELET SUFFICIENCY HIGH (NORMAL); TOTAL CELLS COUNTED 100 #CELLS
[2024-04-05] MEDS ORDERED: BISACODYL 10 MG SUPP R PRN (21:10)
[2024-04-05] MEDS ORDERED: BISACODYL 5 MG TAB PO PRN (21:10)
[2024-04-05] MEDS ORDERED: Acetaminophen/Hydrocodone 5 MG/325 MG TABLET PO PRN (21:10)
[2024-04-05] MEDS ORDERED: ACETAMINOPHEN 325 MG TAB PO PRN (21:10)
[2024-04-05] MEDS ORDERED: MORPHINE Sulfate 2 MG/ML SYR IV PRN (21:10)
[2024-04-05] MEDS ORDERED: ACETAMINOPHEN 650 MG SUPP R PRN (21:10)
[2024-04-05] MEDS ORDERED: Magnesium Hydroxide 30 ML UDC PO PRN (21:10)
[2024-04-05] MEDS ORDERED: Ondansetron Hydrochloride 4 MG/2 ML VIAL IV PRN (21:10)
[2024-04-05] MEDS ORDERED: VANCOMYCIN/WATER FOR INJ (PEG) 250 ML IV SCH (22:00)
[2024-04-05] MEDS ORDERED: GUAIFENESIN 600 MG TAB ER PO SCH (22:00)
[2024-04-05] MEDS ORDERED: GABAPENTIN400 MG PO (23:07)
[2024-04-05] MEDS ORDERED: QUETIAPINE FUM400 M1 PO (23:07)
[2024-04-06] VITALS: BP 110/63
[2024-04-06 06:46] LABS: HEMATOCRIT 38.1 % (37.0-47.0); MEAN CELL VOLUME 82.6 fl (81.0-99.0); MEAN CORPUSCULAR HGB CONC 31.5 g/dl (33.0-37.0); MEAN PLATELET VOLUME 9.5 fl (9.6-12.3); PLATELET COUNT AUTOMATED 385 10*3/uL (130-400); RED BLOOD COUNT 4.61 10*6/uL (4.10-5.10); RED CELL DISTRI WIDTH 13.4 % (0-14.5); WHITE BLOOD COUNT 16.1 10*3/uL (4.8-10.8)
[2024-04-06 07:11] LABS: BUN 6 mg/dl (9-23); CHLORIDE 101 mmol/L (98-107); POTASSIUM 3.6 mmol/L (3.4-5.1)
[2024-04-06 07:16] LABS: MANUAL DIFF REFLEX YES
[2024-04-06 08:00] VITALS: BP 97/58
[2024-04-06] MEDS ORDERED: Piperacillin Sodium/Tazobact 50 ML IV SCH ×2 (08:00)
[2024-04-06 08:23] LABS: BASOPHILS 1 % (0-1); PLATELET SUFFICIENCY NORMAL (NORMAL); TOTAL CELLS COUNTED 100 #CELLS
[2024-04-06] MEDS ORDERED: Enoxaparin Sodium 40 MG/0.4 ML SYR SC SCH (10:00)
[2024-04-06] MEDS ORDERED: Ketorolac Tromethamine 15 MG/ML VIAL IV PRN (11:55)
[2024-04-06 12:00] VITALS: BP 128/76
[2024-04-06] MEDS ORDERED: Nicotine 21 MG PATCH T ONE (12:20)
[2024-04-06 16:00] VITALS: BP 98/62
[2024-04-06] MEDS ORDERED: AZITHROMYCIN 250 MG TAB PO SCH (18:20)
[2024-04-06 20:00] VITALS: BP 116/69
[2024-04-07] VITALS: BP 112/62
[2024-04-07] MEDS ORDERED: IOHEXOL 350 MG/ML 100 ML VIAL IV ONE (07:35)
[2024-04-07] MEDS ORDERED: SODIUM CHLORIDE 0.9% 100 ML BAG IV ONE (07:35)
[2024-04-07 08:00] VITALS: BP 121/79
[2024-04-07] MEDS ORDERED: Nicotine 21 MG PATCH T SCH (10:00)
[2024-04-07 12:00] VITALS: BP 105/68
[2024-04-07] MEDS ORDERED: LEVOFLOXACIN750 M2 PO (15:50)
[2024-04-07] MEDS ORDERED: AMOX-CLAV 875-1 EACH PO (15:50)
[2024-04-07 16:00] VITALS: BP 127/98
[2024-04-07 20:00] VITALS: BP 147/59
[2024-04-08] VITALS: BP 142/55
[2024-04-08 07:21] VITALS: BP 180/113
[2024-04-08] MEDS ORDERED: DIAZEPAM 10 MG/2 ML SYR IV SCH (08:00)
== END 2024-04-08 09:06 | disposition left against medical advice (07) | DRG 871 ==
LOC: ED 18:28 → 4E 20:27 → EDHOLD 20:27 → 4E 22:09 → ICCU 04-08 07:54
PROVIDERS: Physician Assistant Medical; Student in an Organized Health Care Education/Training Program; ADMIT Internal Medicine; ATTEND Internal Medicine
DX: A41.9 Sepsis, unspecified organism (principal); J18.9 Pneumonia, unspecified organism; E87.1 Hypo-osmolality and hyponatremia; F32.9 Major depressive disorder, single episode, unspecified; F43.10 Post-traumatic stress disorder, unspecified; B19.20 Unspecified viral hepatitis C without hepatic coma; F19.90 Other psychoactive substance use, unspecified, uncomplicated; R91.1 Solitary pulmonary nodule; Z53.29 Procedure and treatment not carried out because of patient's decision for other reasons; Z87.891 Personal history of nicotine dependence; Z82.0 Family history of epilepsy and other diseases of the nervous system; Z79.899 Other long term (current) drug therapy

== ENCOUNTER 2024-07-22 02:38 | Emergency (ER) | payer OTHER ==
[~2024-07-22] VITALS: Ht 162.5 cm; Wt 63.5 kg
[~2024-07-22 02:38] MED LIST changes: +AMOX-CLAV 875-1 EACH PO; +GABAPENTIN400 MG PO; +LEVOFLOXACIN750 M2 PO; +QUETIAPINE FUM400 M1 PO
[2024-07-22 02:46] VITALS: BP 146/89
[2024-07-22 03:00] LABS: BILIRUBIN Negative (Negative); BLOOD Trace-Lysed (Negative); CLARITY Clear (Clear); COLOR Yellow (Yellow); GLUCOSE Negative (Negative); KETONE Trace (Negative); LEUKO ESTERASE 2+ (Negative); NITRITE Negative (Negative); SPECIFIC GRAVITY >= 1.030 (1.001-1.030)
[2024-07-22 03:10] LABS: EPITHELIAL CELLS 21-30; WBC 21-30 wbc/hpf (0-5)
[2024-07-22 03:11] LABS: BACTERIA TRACE
[2024-07-22] MEDS ORDERED: Ketorolac Tromethamine 30 MG/ML VIAL IM ONE (03:15)
[2024-07-22] MEDS ORDERED: METHOCARBAMOL 500 MG TAB PO ONE (03:15)
[2024-07-22] MEDS ORDERED: NAPROXEN250 MG PO (03:24)
[2024-07-22] MEDS ORDERED: METHOCARBAMOL500 M1 PO (03:24)
[2024-07-22] MEDS ORDERED: CEPHALEXIN500 M1 PO (17:51)
== END 2024-07-22 03:35 | disposition home or self-care (01) ==
LOC: ED 02:38
PROVIDERS: Internal Medicine
DX: M54.50 Low back pain, unspecified (principal); R10.9 Unspecified abdominal pain; Z79.899 Other long term (current) drug therapy; Z87.891 Personal history of nicotine dependence

== ENCOUNTER 2025-03-07 17:02 | Emergency (ER) | payer OTHER ==
[~2025-03-07] VITALS: Ht 162.5 cm; Wt 65.8 kg
[~2025-03-07 17:02] MED LIST changes: +METHOCARBAMOL500 M1 PO; +NAPROXEN250 MG PO
[2025-03-07 17:30] VITALS: BP 129/82
[2025-03-07] MEDS ORDERED: METRONIDAZOLE500 M1 PO (21:08)
== END 2025-03-07 18:11 | disposition left against medical advice (07) ==
LOC: ED 17:02
DX: M54.50 Low back pain, unspecified (principal); N89.8 Other specified noninflammatory disorders of vagina; Z53.21 Procedure and treatment not carried out due to patient leaving prior to being seen by health care provider

== ENCOUNTER 2025-03-07 20:11 | Emergency (ER) | payer OTHER ==
[~2025-03-07] VITALS: Ht 162.5 cm; Wt 65.8 kg
[2025-03-07 20:43] VITALS: BP 129/92
[2025-03-07] MEDS ORDERED: METRONIDAZOLE500 M1 PO (21:08)
[2025-03-07] MEDS ORDERED: metroNIDAZOLE 500 MG TAB PO ONE (21:10)
== END 2025-03-07 21:17 | disposition home or self-care (01) ==
LOC: ED 20:11
DX: N76.0 Acute vaginitis (principal); B96.89 Other specified bacterial agents as the cause of diseases classified elsewhere; F32.A Depression, unspecified; Z88.5 Allergy status to narcotic agent; Z79.899 Other long term (current) drug therapy; Z87.891 Personal history of nicotine dependence